=== PATIENT | male | born 1990 | race African-American/Black ===

== ENCOUNTER 2018-04-04 15:58 | Emergency (ER) | payer SELFPAY ==
--- NOTE | 2018-04-04 16:37 | NUR ---
TOLD BY ADMITTING PT [facility] AT THIS TIME
== END 2018-04-04 16:37 | disposition left against medical advice (07) ==
LOC: MED 15:58
DX: R10.9 Unspecified abdominal pain (principal); Z53.21 Procedure and treatment not carried out due to patient leaving prior to being seen by health care provider